=== PATIENT | male | born 1965 | race Caucasian/White ===

== ENCOUNTER 2019-05-22 06:36 | Emergency (ER) | payer SELFPAY ==
[~2019-05-22] VITALS: Ht 170.2 cm; Wt 81.8 kg
[2019-05-22] MEDS ORDERED: IPRATROPIUM 0.5MG/ALBUTEROL 2.5MG INH SOL UD 3ML (DUONEB)(J7620) NEB ONE (07:00)
[2019-05-22] MEDS ORDERED: BENZONATATE 100 MG CAP PO ONE (07:00)
[2019-05-22] MEDS ORDERED: KETO10TAB PO (07:46)
[2019-05-22] MEDS ORDERED: CYCL10TA PO (07:46)
--- NOTE | 2019-05-22 07:53 | REP ---
PA and lateral chest: There are no comparisons. The lung call are mildly hyperinflated but otherwise clear. Cardiac size is normal. The sharifa, mediastinum, skeletal structures are unremarkable. Impression: Mild hyperinflation, otherwise negative PA and lateral chest. Electronically Signed by Catrachito Zuñiga MD 05/22/2019 07:44 A
[2019-05-22] MEDS ORDERED: predniSONE 20 MG TAB PO ONE (08:15)
[2019-05-22] MEDS ORDERED: AZITHROMYCIN 250 MG TAB PO ONE (08:15)
[2019-05-22] MEDS ORDERED: ALBUTEROL 90 MCG/ACT 8GM HFA INHALER INH ONE (08:15)
[2019-05-22] MEDS ORDERED: CETIRIZINE (ZyrTEC) 10 MG TAB PO ONE (08:15)
[2019-05-22 08:23] VITALS: BP 176/77
[2019-05-22] MEDS ORDERED: AZIT-12 PO (08:28)
[2019-05-22] MEDS ORDERED: ALBUTEROL 90 MCG/ACT 8GM HFA INHALER INH PRN (08:45)
[2019-05-22] MEDS ORDERED: FLUTICASONE PROP 0.05% NASAL SPRAY 16 GM (FLONASE) NARES SCH (09:00)
[2019-05-22] MEDS ORDERED: PRED20TA PO (11:32)
== END 2019-05-22 08:43 | disposition home or self-care (01) ==
LOC: M ED 06:36
DX: J06.9 Acute upper respiratory infection, unspecified (principal); J44.1 Chronic obstructive pulmonary disease with (acute) exacerbation; F17.200 Nicotine dependence, unspecified, uncomplicated

== ENCOUNTER → 2019-06-26 | Outpatient (CLI) | payer MEDICAID ==
[~2019-06-26] MED LIST: AZIT-12 PO; CYCL10TA PO; KETO10TAB PO; PRED20TA PO
--- NOTE | 2019-06-26 18:21 | REP ---
HISTORY: Goiter. COMPARISON: None. The right lobe of the thyroid gland measures 5 x 1.7 x 1.7 cm and the left lobe measures 4.3 x 1.7 x 1.5 cm. The isthmus measures 7 mm. There is an incidental 3 mm sized cyst in the left lobe of the thyroid gland. IMPRESSION: Essentially unremarkable examination as described above. Electronically Signed by Vinicio Orellana DO 06/29/2019 02:32 P
== END ==
LOC: M CARPUL 15:13
PROVIDERS: ATTEND Internal Medicine
DX: E04.9 Nontoxic goiter, unspecified (principal); J44.9 Chronic obstructive pulmonary disease, unspecified

== ENCOUNTER → 2021-05-17 | Outpatient (CLI) | payer OTHER ==
[~2021-05-17] MED LIST changes: +CYCL-707 PO; -CYCL10TA PO; +ISOVUE-370 76% 100ML VIAL ONE
--- NOTE | 2021-05-17 11:44 | REP ---
INDICATION: NICOTINE DEPENDENCE, COPD COMPARISON: None. TECHNIQUE: Standard helical technique after the intravenous administration of 100 cc Isovue 370. FINDINGS: There is no mediastinal or hilar adenopathy. There are no pleural or pericardial effusions. The imaged upper abdomen and imaged osseous structures are within normal limits. Evaluation of the lung call shows a 5 mm sized irregular nodule in the right middle lobe. There is a 7 mm size nodule in the right lower lobe. No other abnormal nodules, masses, or opacities are present. IMPRESSION: Right lung nodules as described above. According to the revised Fleischner society criteria a three-month follow-up chest CT is recommended. The 7 mm size nodule represents a category 4A lesion. <Electronically signed by Vinicio Orellana > 05/17/21 [id number]
== END ==
LOC: M PLAIMG 11:03
PROVIDERS: ATTEND Internal Medicine
DX: J44.1 Chronic obstructive pulmonary disease with (acute) exacerbation (principal); F17.210 Nicotine dependence, cigarettes, uncomplicated

== ENCOUNTER → 2021-08-07 | Outpatient (CLI) | payer OTHER ==
[~2021-08-07] MED LIST changes: -ISOVUE-370 76% 100ML VIAL ONE
--- NOTE | 2021-08-08 04:46 | REP ---
INDICATION: ABN FINDING OF LUNG COMPARISON: 05/17/2021 TECHNIQUE: Axial noncontrast images from the thoracic inlet to the upper abdomen with coronal and sagittal reformations. This CT examination was performed using the following dose reduction techniques: Automated exposure control, adjustment of mA and/or kv according to the patient's size, and use of iterative reconstruction technique. FINDINGS: Lung call demonstrate mild emphysematous changes. There is a stable calcified granuloma in the right apex and the 7 mm noncalcified nodule in the right lower lobe is unchanged. No new acute consolidation, suspicious nodule or mass lesion. No effusion. No pneumothorax. Tracheobronchial tree is patent. No significant adenopathy. Mediastinum demonstrates stable atherosclerotic changes to the thoracic aorta and coronary arteries without aortic aneurysm or cardiomegaly. No pericardial effusion. Upper abdomen demonstrates normal bilateral adrenal glands along with 3 mm nonobstructing left renal calculus. Surrounding musculoskeletal structures are intact and without acute osseous abnormality. IMPRESSION: Stable 7 mm noncalcified nodule in the right lower lobe and mild generalized chronic changes including mild emphysematous disease. Examination may be downgraded to Lung-RADS category 2 with 12 month follow-up examination recommended for high risk patients. <Electronically signed by John Thao > 08/08/21 [id number]
== END ==
LOC: M RAD 15:11
PROVIDERS: ATTEND Physician Assistant
DX: R91.8 Other nonspecific abnormal finding of lung field (principal); J43.9 Emphysema, unspecified

== ENCOUNTER → 2022-02-07 | Outpatient (CLI) | payer OTHER | LOC: M RAD 15:23 | PROVIDERS: ATTEND Physician Assistant | DX: R91.8 Other nonspecific abnormal finding of lung field (principal) ==

== ENCOUNTER → 2022-07-23 | Outpatient (CLI) | payer OTHER | LOC: M PLAIMG 11:32 | PROVIDERS: ATTEND Physician Assistant | DX: R91.8 Other nonspecific abnormal finding of lung field (principal) ==

== ENCOUNTER → 2023-02-27 | Outpatient (REF) | payer OTHER | LOC: M LAB REF 16:19 | PROVIDERS: ATTEND Physician Assistant Medical | DX: Z01.89 Encounter for other specified special examinations (principal) ==

== ENCOUNTER → 2023-03-27 | Outpatient (CLI) | payer OTHER | LOC: M PLAIMG 08:27 | PROVIDERS: ATTEND Internal Medicine Pulmonary Disease | DX: R91.8 Other nonspecific abnormal finding of lung field (principal) ==

== ENCOUNTER 2023-05-21 09:51 | Emergency (ER) | payer OTHER ==
[~2023-05-21] VITALS: Ht 170.2 cm; Wt 85.0 kg
[2023-05-21 09:51] VITALS: TEMP 98.5
[2023-05-21 12:19] LABS: BASO # 0.1 10^3/uL (0.0-0.2); BASO % 0.6 % (0.0-1.0); EOS # 0.2 10^3/uL (0.0-0.5); HEMATOCRIT 42.1 % (42.0-52.0); HEMOGLOBIN 14.2 g/dl (13.5-17.5); LYMPH # 2.1 10^3/uL (1.5-5.0); LYMPH % 16.8 % (24.0-44.0); MEAN CORPUSCULAR HEMOGLOBIN 30.5 pg (27.0-33.0); MEAN CORPUSCULAR HGB CONC 33.7 g/dl (32.0-36.5); MEAN CORPUSCULAR VOLUME 90.3 fl (80.0-96.0); MONO # 0.9 10^3/uL (0.0-0.8); MONO % 7.5 % (2.0-8.0); NEUTROPHILS # 8.9 10^3/uL (1.5-8.5); NEUTROPHILS % 72.4 % (36.0-66.0); PLATELET COUNT, AUTOMATED 345 10^3/uL (150-450); RED BLOOD COUNT 4.66 10^6/uL (4.30-6.10); WHITE BLOOD COUNT 12.3 10^3/uL (4.0-10.0)
[2023-05-21 12:31] VITALS: O2SAT 98
[2023-05-21 12:31] LABS: INR 1.04; PROTHROMBIN TIME 13.3 SECONDS (12.5-14.5)
[2023-05-21 12:32] LABS: PARTIAL THROMBOPLASTIN TIME 29.9 SECONDS (24.8-34.2)
[2023-05-21 12:38] LABS: ETHYL ALCOHOL (ETHANOL) < 0.003 % (0.000-0.010)
[2023-05-21 12:40] LABS: ALBUMIN 3.3 G/DL (3.2-5.2); ALKALINE PHOSPHATASE 113 U/L (46-116); ALT/SGPT 21 U/L (7.0-40); AST/SGOT 30 U/L (<34); BILIRUBIN,DIRECT 0.1 MG/DL (<0.4); BILIRUBIN,TOTAL 0.5 MG/DL (0.3-1.2); BLOOD UREA NITROGEN 11 MG/DL (9-23); CALCIUM LEVEL 8.7 MG/DL (8.3-10.6); CARBON DIOXIDE LEVEL 28 MMOL/L (20-31); CHLORIDE LEVEL 99 MMOL/L (98-107); CREATININE FOR GFR 0.78 MG/DL (0.70-1.30); GLOMERULAR FILTRATION RATE > 60.0 (>49); GLUCOSE, FASTING 158 MG/DL (74-106); MAGNESIUM LEVEL 1.8 MG/DL (1.8-2.4); POTASSIUM SERUM 4.8 MMOL/L (3.5-5.1); SODIUM LEVEL 133 MMOL/L (136-145); TOTAL PROTEIN 7.2 G/DL (5.7-8.2)
[2023-05-21 13:08] VITALS: BP 161/89
== END 2023-05-21 13:42 | disposition left against medical advice (07) ==
LOC: M ED 09:51
DX: Z53.21 Procedure and treatment not carried out due to patient leaving prior to being seen by health care provider (principal)

== ENCOUNTER → 2024-05-07 | Outpatient (CLI) | payer OTHER | LOC: M RAD 15:24 | PROVIDERS: ATTEND Physician Assistant | DX: Z12.2 Encounter for screening for malignant neoplasm of respiratory organs (principal); F17.218 Nicotine dependence, cigarettes, with other nicotine-induced disorders; R91.1 Solitary pulmonary nodule ==

== ENCOUNTER → 2025-07-21 | Outpatient (CLI) | payer MEDICARE | LOC: M RAD 07:47 | PROVIDERS: ATTEND Physician Assistant | DX: Z87.891 Personal history of nicotine dependence (principal) ==